=== PATIENT | female | born 1990 | race African-American/Black ===

== ENCOUNTER 2017-09-23 12:09 | Emergency (ER) | payer SELFPAY ==
[~2017-09-23] VITALS: Ht 162.6 cm; Wt 50.0 kg
[2017-09-23 12:32] VITALS: BP 151/106; PULSE 89; RESP 15; TEMP 98.2; O2SAT 99
[2017-09-23 16:07] LABS: BILIRUBIN, URINE NEG (NEG); BLOOD, URINE SMALL (NEG); GLUCOSE,URINE NEG (NEG); KETONE, URINE 40 mg/dL (NEG); NITRITE,URINE NEG (NEG); PH, URINE 6.5 (5.0-8.5); SQUAMOUS EPITHELIAL CELL URINE 4 /hpf (0-5); URINE COLOR LIGHT-YELLOW (YELLW/STRAW); URINE LEUKOCYTE ESTERASE SMALL (NEG)
[2017-09-23 16:15] LABS: AUTOMATED NEUTROPHIL # 5.3 TH/MM3 (1.8-7.7); BASOPHIL % 0.4 % (0.0-2.0); EOSINOPHIL # 0.1 TH/MM3 (0-0.4); EOSINOPHIL % 1.6 % (0.0-4.0); HEMATOCRIT 41.9 % (35.0-46.0); LYMPH % 32.7 % (9.0-44.0); LYMPHOCYTE # 3.1 TH/MM3 (1.0-4.8); MEAN CELL VOLUME 90.5 FL (80.0-100.0); MEAN CORPUSCULAR HEMOGLOBIN 30.2 PG (27.0-34.0); MEAN CORPUSCULAR HGB CONC 33.4 % (32.0-36.0); MEAN PLATELET VOLUME 10.7 FL (7.0-11.0); MONOCYTE # 0.8 TH/MM3 (0-0.9); NEUT % 56.3 % (16.0-70.0); PLATELET COUNT 190 TH/MM3 (150-450); RED BLOOD COUNT 4.63 MIL/MM3 (4.00-5.30); RED CELL DISTRIBUTION WIDTH 14.9 % (11.6-17.2); WHITE BLOOD COUNT 9.4 TH/MM3 (4.0-11.0)
--- NOTE | 2017-09-23 16:39 | PD ---
HPI Chief Complaint: Abdominal Pain Time Seen by Provider: 14:46 Travel History International Travel<30 days: No Contact w/Intl Traveler<30days: No Traveled to known affect area: No History of Present Illness HPI 27-year-old woman presents to the emergency department complaining of lower abdominal cramping, pain on the right side of her chest, rating the right side of her neck, throughout the right side of her body. She states she has some shortness of breath with this as well. She states the lower abdominal pain feels like she is cramping, like a bad menstrual period or like she is in labor. She is worried she may have an infection. She has been sexually active with men only, 3 partners in the past 6 months, but is heard rumors at 1 of the symptoms of STD. She states she otherwise has been feeling well and healthy. No other complaints. History Past Medical History Medical History: Denies Significant Hx Tetanus Vaccination: < 5 Years Menopausal: No : 5 Para: 5 Social History Alcohol Use: Yes (DAILY) Tobacco Use: Yes (1/2 PPD) Allergies-Medications (Allergen,Severity, Reaction): Coded Allergies: Unable to Assess (Unverified Allergy, Unknown, 02/10/17) Altered mental status No Known Allergies (Verified Adverse Reaction, Unknown, 09/23/17) Reported Meds & Prescriptions Reported Meds & Active Scripts Active No Active Prescriptions or Reported Medications Review of Systems Except as stated in HPI: all other systems reviewed are Neg Physical Exam Narrative GENERAL: Well-appearing 27-year-old woman, no acute distress. SKIN: Focused skin assessment warm/dry. HEAD: Atraumatic. Normocephalic. CARDIOVASCULAR: Regular rate and rhythm. No murmur appreciated. RESPIRATORY: No accessory muscle use. Clear to auscultation. Breath sounds equal bilaterally. GASTROINTESTINAL: Abdomen soft, non-tender, nondistended. Hepatic and splenic margins not palpable. MUSCULOSKELETAL: No obvious deformities. No clubbing. No cyanosis. No edema. NEUROLOGICAL: Awake and alert. No obvious cranial nerve deficits. Motor grossly within normal limits. Normal speech. PSYCHIATRIC: Appropriate mood and affect; insight and judgment normal. PELVIC: Normal external female genitalia. A moderate amount of white vaginal discharge. No significant cervical motion tenderness. Uterus is palpable but does not seem enlarged. No palpable adnexal enlargement or masses or tenderness. Data Data Last Documented VS Vital Signs Date Time Temp Pulse Resp B/P (MAP) Pulse Ox O2 Delivery O2 Flow Rate FiO2 09/23/17 12:32 98.2 89 15 151/106 (121) 99 Orders Orders Complete Blood Count With Diff (09/23/17 12:34) Comprehensive Metabolic Panel (09/23/17 12:34) Urinalysis - C+S If Indicated (09/23/17 12:34) Ed Urine Pregnancytest Poc (09/23/17 12:34) Lipase (09/23/17 12:34) Wet Prep Profile (09/23/17 15:02) Gc And Chlamydia Pcr (09/23/17 15:02) Labs Laboratory Tests Test 09/23/17 15:00 09/23/17 15:10 White Blood Count 9.4 TH/MM3 Red Blood Count 4.63 MIL/MM3 Hemoglobin 14.0 GM/DL Hematocrit 41.9 % Mean Corpuscular Volume 90.5 FL Mean Corpuscular Hemoglobin 30.2 PG Mean Corpuscular Hemoglobin Concent 33.4 % Red Cell Distribution Width 14.9 % Platelet Count 190 TH/MM3 Mean Platelet Volume 10.7 FL Neutrophils (%) (Auto) 56.3 % Lymphocytes (%) (Auto) 32.7 % Monocytes (%) (Auto) 9.0 % Eosinophils (%) (Auto) 1.6 % Basophils (%) (Auto) 0.4 % Neutrophils # (Auto) 5.3 TH/MM3 Lymphocytes # (Auto) 3.1 TH/MM3 Monocytes # (Auto) 0.8 TH/MM3 Eosinophils # (Auto) 0.1 TH/MM3 Basophils # (Auto) 0.0 TH/MM3 CBC Comment DIFF FINAL Differential Comment Clue Cells (Wet Prep) PRESENT Vaginal Trichomonas (Wet Prep) NONE SEEN Vaginal Yeast (Wet Prep) NONE SEEN Blood Urea Nitrogen 9 MG/DL Creatinine 0.89 MG/DL Random Glucose 85 MG/DL Total Protein 8.6 GM/DL Albumin 4.0 GM/DL Calcium Level 9.5 MG/DL Alkaline Phosphatase 86 U/L Aspartate Amino Transf (AST/SGOT) 40 U/L Alanine Aminotransferase (ALT/SGPT) 24 U/L Total Bilirubin 0.4 MG/DL Sodium Level 134 MEQ/L Potassium Level 5.3 MEQ/L Chloride Level 100 MEQ/L Carbon Dioxide Level 28.4 MEQ/L Anion Gap 6 MEQ/L Estimat Glomerular Filtration Rate 91 ML/MIN Lipase 132 U/L Urine Color LIGHT-YELLOW Urine Turbidity CLEAR Urine pH 6.5 Urine Specific [place] 1.008 Urine Protein NEG mg/dL Urine Glucose (UA) NEG mg/dL Urine Ketones 40 mg/dL Urine Occult Blood SMALL Urine Nitrite NEG Urine Bilirubin NEG Urine Urobilinogen LESS THAN 2.0 MG/DL Urine Leukocyte Esterase SMALL Urine RBC LESS THAN 1 /hpf Urine WBC 3 /hpf Urine Squamous Epithelial Cells 4 /hpf Microscopic Urinalysis Comment CULT NOT INDICATED MDM Medical Decision Making Medical Screen Exam Complete: Yes Emergency Medical Condition: Yes Interpretation(s) LABS: CBC is unremarkable CMP Lipase UA unremarkable Wet prep positive for clue cells Differential Diagnosis PID, vaginitis, cramping, muscular skeletal pain, other Narrative Course Medical decision making to present 27-year-old woman presents emerged department with plethora of unusual complaints including lower abdominal pain and cramping with vaginal discharge, as well as right-sided face neck chest valley arm pain of unclear etiology. She is a very normal benign exam. Pelvic exam is fairly unremarkable despite her concerns for STD. Gonorrhea and chlamydia swabs are obtained. Will check basic labs, initial workup is unremarkable, would recommend outpatient follow-up. I do not think she has a PE or other more sinister pathology for this right-sided pain. Diagnosis Primary Impression: Pelvic cramping Additional Instructions: Take Flagyl as prescribed. Take Naprosyn as needed for abdominal pain. Follow-up with her primary doctor in the next 2-4 days. Return to the emergency department for any new or worsening symptoms. Med/Other Pt SpecificInfo: Prescription(s) given Scripts Naproxen (Naproxen) 500 Mg Tab 500 MG PO BID for 14 Days, #28 TAB 0 Refills Prov: Musa Hubbard MD 09/23/17 Metronidazole (Metronidazole) 500 Mg Tab 500 MG PO BID for Infection for 7 Days, #14 TAB 0 Refills Prov: Musa Hubbard MD 09/23/17 Disposition: 01 DISCHARGE HOME Condition: Stable Musa Hubbard MD Sep 23, 2017 16:39
[2017-09-23 16:43] LABS: ALKALINE PHOSPHATASE 86 U/L (45-117); ALT (GPT) 24 U/L (10-53); TOTAL BILIRUBIN ADULT 0.4 MG/DL (0.2-1.0); TOTAL PROTEIN 8.6 GM/DL (6.4-8.2)
[2017-09-23 17:04] LABS: AST (GOT) 40 U/L (15-37); BICARBONATE 28.4 MEQ/L (21.0-32.0); BLOOD UREA NITROGEN 9 MG/DL (7-18); CALCIUM 9.5 MG/DL (8.5-10.1); CHLORIDE 100 MEQ/L (98-107); CREATININE 0.89 MG/DL (0.50-1.00); GLOMERULAR FILTRATION RATE 91 ML/MIN (>89); GLUCOSE,RANDOM 85 MG/DL (74-106); SODIUM (NA) 134 MEQ/L (136-145)
[2017-09-23] MEDS ORDERED: METR1TAB76 PO (17:35)
[2017-09-23] MEDS ORDERED: NAPR500T2 PO (17:35)
[2017-09-23] MEDS ORDERED: NAPROXEN 500 MG TAB PO ONE (17:45)
[2017-09-23 17:57] VITALS: BP 118/67
== END 2017-09-23 18:07 | disposition home or self-care (01) ==
LOC: NEPD 12:09
DX: R10.2 Pelvic and perineal pain (principal); F17.200 Nicotine dependence, unspecified, uncomplicated; R06.02 Shortness of breath
CPT/HCPCS: 80053; 81001; 83690; 84703; 85025; 87210; 87491; 87591; 99284

== ENCOUNTER 2017-11-05 01:05 | Emergency (ER) | payer SELFPAY ==
[~2017-11-05] VITALS: Ht 162.6 cm; Wt 50.0 kg
[~2017-11-05 01:05] MED LIST: METR1TAB76 PO; NAPR500T2 PO
[2017-11-05 01:11] VITALS: BP 122/75; PULSE 104; RESP 18; TEMP 98.9; O2SAT 100
[2017-11-05] MEDS ORDERED: SODIUM CHLOR 0.9% 1000 ML INJ 1,000 ML IV SCH (01:36)
[2017-11-05] MEDS ORDERED: SODIUM CHLORIDE 0.9% FLUSH 10 ML FLUSH IV FLUSH PRN (01:45)
[2017-11-05] MEDS ORDERED: ONDANSETRON HCL 4 MG/2 ML VIAL IVP ONE (01:45)
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
[2017-11-05 02:12] LABS: AUTOMATED NEUTROPHIL # 4.5 TH/MM3 (1.8-7.7); BASOPHIL % 0.5 % (0.0-2.0); EOSINOPHIL # 0.2 TH/MM3 (0-0.4); EOSINOPHIL % 2.5 % (0.0-4.0); HEMATOCRIT 40.1 % (35.0-46.0); HEMOGLOBIN 13.8 GM/DL (11.6-15.3); LYMPH % 37.7 % (9.0-44.0); LYMPHOCYTE # 3.4 TH/MM3 (1.0-4.8); MEAN CELL VOLUME 87.9 FL (80.0-100.0); MEAN CORPUSCULAR HEMOGLOBIN 30.2 PG (27.0-34.0); MEAN CORPUSCULAR HGB CONC 34.4 % (32.0-36.0); MEAN PLATELET VOLUME 10.2 FL (7.0-11.0); MONO % 9.7 % (0.0-8.0); MONOCYTE # 0.9 TH/MM3 (0-0.9); NEUT % 49.6 % (16.0-70.0); PLATELET COUNT 185 TH/MM3 (150-450); RED BLOOD COUNT 4.56 MIL/MM3 (4.00-5.30); RED CELL DISTRIBUTION WIDTH 14.6 % (11.6-17.2)
[2017-11-05 02:30] LABS: CALCIUM 8.8 MG/DL (8.5-10.1); CREATININE 1.01 MG/DL (0.50-1.00)
--- NOTE | 2017-11-05 20:54 | EKG ---
Date Performed: 11/05/2017 Time Performed: 01:23:42 PTAGE: 27 years EKG: Sinus rhythm High QRS voltage, probably normal for age. Since previous tracing, no significant change noted ABNOR MAL ECG PREVIOUS TRACING : 02/12/2009 13.37 DOCTOR: Harjinder Archer Interpretating Date/Time 11/05/2017 20:54:47
== END 2017-11-05 03:42 | disposition home or self-care (01) ==
LOC: NEPC 01:05
DX: F19.10 Other psychoactive substance abuse, uncomplicated (principal); R11.2 Nausea with vomiting, unspecified; F17.200 Nicotine dependence, unspecified, uncomplicated; R94.31 Abnormal electrocardiogram [ECG] [EKG]
CPT/HCPCS: 80048; 83690; 85025; 93005; 96360; 99284; J7030

== ENCOUNTER 2017-11-19 14:50 | Emergency (ER) | payer SELFPAY ==
[~2017-11-19] VITALS: Ht 162.6 cm; Wt 52.0 kg
[2017-11-19 14:56] VITALS: BP 139/85; PULSE 91; RESP 16; TEMP 97.3; O2SAT 100
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
[2017-11-19] MEDS ORDERED: SODIUM CHLORIDE 0.9% FLUSH 10 ML FLUSH IV FLUSH PRN (15:45)
[2017-11-19 16:11] LABS: AUTOMATED NEUTROPHIL # 7.4 TH/MM3 (1.8-7.7); BASOPHIL % 0.2 % (0.0-2.0); EOSINOPHIL # 0.1 TH/MM3 (0-0.4); EOSINOPHIL % 0.5 % (0.0-4.0); HEMATOCRIT 39.9 % (35.0-46.0); HEMOGLOBIN 13.4 GM/DL (11.6-15.3); LYMPH % 20.7 % (9.0-44.0); LYMPHOCYTE # 2.1 TH/MM3 (1.0-4.8); MEAN CORPUSCULAR HEMOGLOBIN 29.8 PG (27.0-34.0); MEAN CORPUSCULAR HGB CONC 33.6 % (32.0-36.0); MEAN PLATELET VOLUME 9.9 FL (7.0-11.0); MONOCYTE # 0.7 TH/MM3 (0-0.9); NEUT % 71.6 % (16.0-70.0); PLATELET COUNT 175 TH/MM3 (150-450); RED BLOOD COUNT 4.49 MIL/MM3 (4.00-5.30); RED CELL DISTRIBUTION WIDTH 14.8 % (11.6-17.2); WHITE BLOOD COUNT 10.3 TH/MM3 (4.0-11.0)
[2017-11-19 16:16] LABS: PROTHROMBIN TIME - PATIENT 10.3 SEC (9.8-11.6)
[2017-11-19 16:18] LABS: BACTERIA, URINE RARE /hpf; BILIRUBIN, URINE NEG (NEG); BLOOD, URINE NEG (NEG); GLUCOSE,URINE NEG (NEG); KETONE, URINE NEG (NEG); MUCUS URINE FEW /lpf (OCC); NITRITE,URINE NEG (NEG); SQUAMOUS EPITHELIAL CELL URINE 1 /hpf (0-5); URINE COLOR YELLOW (YELLW/STRAW); URINE LEUKOCYTE ESTERASE MOD (NEG)
[2017-11-19 16:25] LABS: ALBUMIN 4.1 GM/DL (3.4-5.0); ALT (GPT) 22 U/L (10-53); AST (GOT) 20 U/L (15-37); BICARBONATE 25.9 MEQ/L (21.0-32.0); BLOOD UREA NITROGEN 3 MG/DL (7-18); CHLORIDE 101 MEQ/L (98-107); CREATININE 0.82 MG/DL (0.50-1.00); GLOMERULAR FILTRATION RATE 100 ML/MIN (>89); GLUCOSE,RANDOM 107 MG/DL (74-106); SODIUM (NA) 138 MEQ/L (136-145)
[2017-11-19 16:29] LABS: ALKALINE PHOSPHATASE 63 U/L (45-117); TOTAL BILIRUBIN ADULT 0.2 MG/DL (0.2-1.0); TOTAL PROTEIN 7.6 GM/DL (6.4-8.2)
--- NOTE | 2017-11-19 17:50 | RADRPT ---
EXAM DATE: 11/19/2017 5:44 PM EDT AGE/SEX: 27 years / Female INDICATIONS: Patient states possible foreign body in rectum. CLINICAL DATA: This is the patient's initial encounter. Patient reports that signs and symptoms have been present for 1 day and indicates a pain score of 0/10. MEDICAL/SURGICAL HISTORY: None. Tubal ligation. RADIATION DOSE: 6.64 CTDI (mGy) COMPARISON: No prior [facility] exams available for comparison. TECHNIQUE: Multiple contiguous axial images were obtained through the abdomen. Images were obtained using multiple row detector helical technique. Using dose reduction techniques, radiation dose was ke pt as low as reasonably achievable to obtain optimal diagnostic quality images. FINDINGS: Lung bases are clear. No acute findings in the liver, spleen, adrenals, kidneys or pancreas. No free fluid in the abdomen. There is a small amount of free fluid in the pelvis.. No bowel obstruct ion. No adenopathy. There is a 2.6 cm right adnexal cyst, probably ovarian. No radiopaque foreign body is seen in the rec randall. Stool is noted. CONCLUSION: 1. 2.6 cm right adnexal cyst. Trace free fluid in the pelvis. No radiopaque foreign body identified within the rectum. No acute bony abnormalities. Electronically signed by: Mark Hernandez MD 11/19/2017 5:48 PM EDT
[2017-11-19 21:30] VITALS: BP 124/66; PULSE 88; RESP 16; O2SAT 98
--- NOTE | 2017-11-20 17:58 | EKG ---
Date Performed: 11/19/2017 Time Performed: 15:45:32 PTAGE: 27 years EKG: Sinus rhythm NORMAL ECG Since the PREVIOUS TRACING , no significant change noted PREVIOUS TRACIN11/05/2017 01.23 DOCTOR: Hilda Cochran Interpretating Date/Time 11/20/2017 17:57:20
== END 2017-11-20 01:02 | disposition home or self-care (01) ==
LOC: NEPD 14:50
DX: N83.201 Unspecified ovarian cyst, right side (principal); F17.200 Nicotine dependence, unspecified, uncomplicated
CPT/HCPCS: 74176; 80053; 81001; 84702; 85025; 85610; 85730; 93005; 99285

== ENCOUNTER 2017-11-20 11:29 | Emergency (ER) | payer SELFPAY ==
[~2017-11-20] VITALS: Ht 162.6 cm; Wt 52.0 kg
[2017-11-20 11:57] VITALS: BP 133/91; PULSE 62; RESP 17; TEMP 98.6; O2SAT 99
[2017-11-20 12:47] LABS: AUTOMATED NEUTROPHIL # 7.4 TH/MM3 (1.8-7.7); BASOPHIL % 0.4 % (0.0-2.0); EOSINOPHIL # 0.1 TH/MM3 (0-0.4); EOSINOPHIL % 1.1 % (0.0-4.0); HEMATOCRIT 41.1 % (35.0-46.0); HEMOGLOBIN 13.5 GM/DL (11.6-15.3); LYMPH % 19.5 % (9.0-44.0); MEAN CELL VOLUME 89.3 FL (80.0-100.0); MEAN CORPUSCULAR HEMOGLOBIN 29.4 PG (27.0-34.0); MEAN PLATELET VOLUME 10.2 FL (7.0-11.0); MONO % 7.6 % (0.0-8.0); MONOCYTE # 0.8 TH/MM3 (0-0.9); NEUT % 71.4 % (16.0-70.0); PLATELET COUNT 188 TH/MM3 (150-450); RED CELL DISTRIBUTION WIDTH 15.1 % (11.6-17.2); WHITE BLOOD COUNT 10.3 TH/MM3 (4.0-11.0)
[2017-11-20 13:04] LABS: ALT (GPT) 21 U/L (10-53); BICARBONATE 27.5 MEQ/L (21.0-32.0); BLOOD UREA NITROGEN 3 MG/DL (7-18); CALCIUM 9.5 MG/DL (8.5-10.1); CHLORIDE 103 MEQ/L (98-107); CREATININE 0.79 MG/DL (0.50-1.00); GLOMERULAR FILTRATION RATE 104 ML/MIN (>89); GLUCOSE,RANDOM 101 MG/DL (74-106); SODIUM (NA) 140 MEQ/L (136-145)
[2017-11-20 13:15] LABS: ALKALINE PHOSPHATASE 65 U/L (45-117); AST (GOT) 15 U/L (15-37); TOTAL BILIRUBIN ADULT 0.2 MG/DL (0.2-1.0); TOTAL PROTEIN 7.8 GM/DL (6.4-8.2)
== END 2017-11-20 15:40 | disposition left against medical advice (07) ==
LOC: NETRI 11:29
DX: Z03.89 Encounter for observation for other suspected diseases and conditions ruled out (principal)
CPT/HCPCS: 80053; 85025; 99281

== ENCOUNTER 2018-02-27 17:47 | Inpatient (IN) ==
[2018-02-27 18:42] LABS: Baso # (Auto) 0.1 th/mm3 (0.0-0.2); Baso % (Auto) 0.5 % (0.0-2.0); Eos # (Auto) 0.1 th/mm3 (0.0-0.4); Eos % (Auto) 0.6 % (0.0-4.0); Hematocrit 40.5 % (35.0-46.0); Hemoglobin 13.8 gm/dL (11.6-15.3); Lymph % (Auto) 24.8 % (9.0-44.0); Mean Corpuscular HGB Conc 34.1 % (32.0-36.0); Mean Corpuscular Volume 87.8 fL (80.0-100.0); Mean Platelet Volume 10.4 fL (7.0-11.0); Mono # (Auto) 1.4 th/mm3 (0.0-0.9); Mono % (Auto) 11.9 % (0.0-8.0); Neut # (Auto) 7.5 th/mm3 (1.8-7.7); Neut % (Auto) 62.2 % (16.0-70.0); Platelet Count 195 th/mm3 (150-450); Red Blood Count 4.61 mil/mm3 (4.00-5.30); Red Cell Distribution Width 16.1 % (11.6-17.2); White Blood Count 12.1 th/mm3 (4.0-11.0)
[2018-02-27 19:07] LABS: Alanine Aminotransferase 23 U/L (10-53); Albumin 4.1 g/dL (3.4-5.0); Anion Gap 12 meq/L (5-15); Aspartate Aminotransferase 24 U/L (15-37); Blood Urea Nitrogen 11 mg/dL (7-18); Calcium 9.1 mg/dL (8.5-10.1); Carbon Dioxide 23.3 meq/L (21.0-32.0); Chloride 102 meq/L (98-107); Glomerular Filtration Rate 72 mL/min (>89); Glucose,Random 108 mg/dL (74-106); Potassium 3.6 meq/L (3.5-5.1); Sodium 137 meq/L (136-145)
[2018-02-27 19:17] LABS: Alkaline Phosphatase 68 U/L (45-117)
[2018-02-27 19:38] LABS: Amphetamine Screen,Urine Pos (Neg); Barbiturate Screen,Urine Neg (Neg); Cannabinoid Screen,Urine Pos (Neg); Cocaine Screen,Urine Neg (Neg)
[2018-02-27 19:40] LABS: Opiate Screen,Urine Neg (Neg)
--- NOTE | 2018-02-27 19:48 | ED ---
HPI General Chief Complaint: Psychiatric Symptoms Stated Complaint: psych eval Time Seen by Provider: 02/27/18 19:12 Source: patient and police Mode of arrival: ambulatory Limitations: no limitations History of Present Illness HPI Narrative: 27-year-old black female presents emergency department under a [place] act by PD. Family members had called regarding the patient's well-being. The patient appear to be acutely psychotic and unable to render meaningful history. She continues to state that she is . Past medical history: TBI with subdural hematoma Related Data Home Medications Medication Instructions Recorded Confirmed Unable to Obtain Home Meds 02/27/18 02/27/18 Allergies Allergy/AdvReac Type Severity Reaction Status Date / Time No Known Allergies Allergy Unverified 02/27/18 18:02 Review of Systems ROS Unobtainable ROS Unobtainable: unobtainable due to mental condition PMFSH Medical History Medical History Medical history unknown (Acute) Surgical history unknown (Acute) Social History Social History Substance History: Unable to Obtain Second Hand Smoke Exposure: No Smoking Status: Heavy tobacco smoker Tobacco Type: Cigarettes How Often Do You Have a Drink Containing Alcohol: 4 or more times a week Recent Travel in [place] within the Last 8 Weeks: No Recent Out of Country Travel within the Last 8 Weeks: No Immunization History Tetanus Immunization: Unable to Assess Hx Influenza Vaccine This Season: Unable to Assess Exam Narrative Exam Narrative: GENERAL: Well-nourished, well-developed patient. SKIN: Warm and dry. HEAD: Normocephalic and atraumatic. EYES: No scleral icterus. No injection or drainage. ENT: No nasal drainage noted. Mucous membranes pink. Airway patent. NECK: Supple, trachea midline. Moves head freely without obvious discomfort. CARDIOVASCULAR: Regular rate and rhythm without murmurs, gallops, or rubs. RESPIRATORY: Breath sounds equal bilaterally. No accessory muscle use. GASTROINTESTINAL: Abdomen soft, non-tender, nondistended. EXTREMITIES: No cyanosis or edema. BACK: Nontender without obvious deformity. No CVA tenderness. NEURO: Patient is alert and oriented. no sensorimotor deficits. Nonfocal. Normal speech. PSYCH: The patient is acutely psychotic and delusional. Course Initial Documented Vital Signs Temperature 99.5 F 02/27/18 18:03 Pulse Rate 128 H 02/27/18 18:03 Respiratory Rate 18 02/27/18 18:03 Blood Pressure 152/83 H 02/27/18 18:03 Pulse Oximetry 100 02/27/18 18:03 Last Documented Vital Signs Temperature 98.0 F 02/28/18 06:00 Pulse Rate 78 02/28/18 06:00 Respiratory Rate 17 02/28/18 06:00 Blood Pressure 109/68 02/28/18 06:00 Pulse Oximetry 98 02/28/18 06:00 Medical Decision Making MDM Narrative Medical decision making narrative: Laboratory tests for medical clearance. Patient is given Geodon 20 mg IM and Ativan 2 mg IM. The patient is very agitated, psychotic. The patient is medically cleared. Medical Screen Exam Complete: Yes Emergency Medical Condition: Yes Differential Diagnosis Differential Diagnosis: MDM: High Differential diagnoses: Schizophrenia, schizoaffective disorder, bipolar, anxiety, depression, adjustment reaction, mood disorder NOS, ODD, depressive disorder NOS, dementia, dementia with agitation, psychosis NOS, substance induced mood disorder, DMDD, Asperger syndrome, infection,electrolyte abnormality, malingering. Mental health screening discussed with the patient. Psychiatric screen ordered. Lab Data Result diagrams: 02/27/18 18:19 02/27/18 18:19 POC Results POC Urine Results Negative Lab Results 02/27/18 02/27/18 02/27/18 Range/Units 18:19 18:19 19:05 WBC 12.1 H (4.0-11.0) th/mm3 RBC 4.61 (4.00-5.30) mil/mm3 Hgb 13.8 (11.6-15.3) gm/dL Hct 40.5 (35.0-46.0) % MCV 87.8 (80.0-100.0) fL MCH 30.0 (27.0-34.0) pg MCHC 34.1 (32.0-36.0) % RDW 16.1 (11.6-17.2) % Plt Count 195 (150-450) th/mm3 MPV 10.4 (7.0-11.0) fL Neut % (Auto) 62.2 (16.0-70.0) % Lymph % (Auto) 24.8 (9.0-44.0) % Towns % (Auto) 11.9 H (0.0-8.0) % Eos % (Auto) 0.6 (0.0-4.0) % Baso % (Auto) 0.5 (0.0-2.0) % Neut # (Auto) 7.5 (1.8-7.7) th/mm3 Lymph # (Auto) 3.0 (1.0-4.8) th/mm3 Towns # (Auto) 1.4 H (0.0-0.9) th/mm3 Eos # (Auto) 0.1 (0.0-0.4) th/mm3 Baso # (Auto) 0.1 (0.0-0.2) th/mm3 WBC Differential . Differential Comment Auto diff final Sodium 137 (136-145) meq/L Potassium 3.6 (3.5-5.1) meq/L Chloride 102 (98-107) meq/L Carbon Dioxide 23.3 (21.0-32.0) meq/L Anion Gap 12 (5-15) meq/L BUN 11 (7-18) mg/dL Creatinine 1.09 H (0.50-1.00) mg/dL Estimated GFR 72 L (>89) mL/min Random Glucose 108 H (74-106) mg/dL Calcium 9.1 (8.5-10.1) mg/dL Total Bilirubin 0.5 (0.2-1.0) mg/dL AST 24 (15-37) U/L ALT 23 (10-53) U/L Alkaline Phosphatase 68 (45-117) U/L Total Protein 8.0 (6.4-8.2) g/dL Albumin 4.1 (3.4-5.0) g/dL TSH 1.030 (0.358-3.740) uIU/mL Urine Color (Yellw/Straw) Urine Clarity (Clear) Urine pH (5.0-8.5) Ur Specific [place] (1.002-1.035) Urine Protein (Neg-Trace) mg/dL Urine Glucose (UA) (Negative) mg/dL Urine Ketones (Negative) mg/dL Urine Occult Blood (Negative) Urine Nitrate (Negative) Urine Bilirubin (Negative) Urine Urobilinogen (Less than 2) mg/dL Ur Leukocyte Esterase (Negative) Urine RBC (0-3) /hpf Urine WBC (0-5) /hpf Ur Squamous Epith Cells (0-5) /hpf Ur Transition Epith Cell (None) /hpf Urine Bacteria (None) /hpf Hyaline Casts (0-3) /lpf Granular Casts (None) /lpf Urine Mucus (Occasional) /lpf Micro UA Comment Ur Microscopic Review Urine Culture Comments Urine Opiates Screen Neg (Neg) Ur Barbiturates Screen Neg (Neg) Ur Amphetamines Screen Pos H (Neg) U Benzodiazepines Scrn Neg (Neg) Urine Cocaine Screen Neg (Neg) U Cannabinoids Screen Pos H (Neg) Serum Alcohol Less than 3 (0-5) mg/dL 02/27/18 Range/Units 19:05 WBC (4.0-11.0) th/mm3 RBC (4.00-5.30) mil/mm3 Hgb (11.6-15.3) gm/dL Hct (35.0-46.0) % MCV (80.0-100.0) fL MCH (27.0-34.0) pg MCHC (32.0-36.0) % RDW (11.6-17.2) % Plt Count (150-450) th/mm3 MPV (7.0-11.0) fL Neut % (Auto) (16.0-70.0) % Lymph % (Auto) (9.0-44.0) % Towns % (Auto) (0.0-8.0) % Eos % (Auto) (0.0-4.0) % Baso % (Auto) (0.0-2.0) % Neut # (Auto) (1.8-7.7) th/mm3 Lymph # (Auto) (1.0-4.8) th/mm3 Towns # (Auto) (0.0-0.9) th/mm3 Eos # (Auto) (0.0-0.4) th/mm3 Baso # (Auto) (0.0-0.2) th/mm3 WBC Differential Differential Comment Sodium (136-145) meq/L Potassium (3.5-5.1) meq/L Chloride (98-107) meq/L Carbon Dioxide (21.0-32.0) meq/L Anion Gap (5-15) meq/L BUN (7-18) mg/dL Creatinine (0.50-1.00) mg/dL Estimated GFR (>89) mL/min Random Glucose (74-106) mg/dL Calcium (8.5-10.1) mg/dL Total Bilirubin (0.2-1.0) mg/dL AST (15-37) U/L ALT (10-53) U/L Alkaline Phosphatase (45-117) U/L Total Protein (6.4-8.2) g/dL Albumin (3.4-5.0) g/dL TSH (0.358-3.740) uIU/mL Urine Color Yellow (Yellw/Straw) Urine Clarity Hazy H (Clear) Urine pH 6.0 (5.0-8.5) Ur Specific [place] 1.012 (1.002-1.035) Urine Protein 30 H (Neg-Trace) mg/dL Urine Glucose (UA) Negative (Negative) mg/dL Urine Ketones 20 (Negative) mg/dL Urine Occult Blood Moderate H (Negative) Urine Nitrate Negative (Negative) Urine Bilirubin Negative (Negative) Urine Urobilinogen 2.0 H (Less than 2) mg/dL Ur Leukocyte Esterase Moderate H (Negative) Urine RBC 1 (0-3) /hpf Urine WBC 23 H (0-5) /hpf Ur Squamous Epith Cells 1 (0-5) /hpf Ur Transition Epith Cell <1 (None) /hpf Urine Bacteria Rare H (None) /hpf Hyaline Casts 12 (0-3) /lpf Granular Casts 10 (None) /lpf Urine Mucus Few H (Occasional) /lpf Micro UA Comment Culture indicated Ur Microscopic Review Not Reportable Urine Culture Comments Culture indicated Urine Opiates Screen (Neg) Ur Barbiturates Screen (Neg) Ur Amphetamines Screen (Neg) U Benzodiazepines Scrn (Neg) Urine Cocaine Screen (Neg) U Cannabinoids Screen (Neg) Serum Alcohol (0-5) mg/dL Discharge Plan Discharge Disposition Patient Disposition: 01 Discharge Home Discharge Condition Condition: Stable Discharge Order Discharge Orders: Discharge Order (Routine); Ordered 02/28/18 Ordered By: Mark Farias Discharge Details Anticipated Discharge Date: 02/28/18 Physicians Team ED Provider: [facility] ED Midlevel Provider: Mark Farias Primary Care Provider: Primary Care Mj,Desire Attending Provider: Wilfred Owesn Other Providers: Lucinao Macdonald Discharge Interventions Interventions: ED Discharge Assessment Last Done: 02/27/18 23:44 Vital Signs Last Done: 02/27/18 22:49 Status ED Status: Left Department Discharge Information Discharge Date/Time: 02/27/18 23:47
[2018-02-27 22:57] LABS: Bacteria,Urine Rare /hpf; Bilirubin,Urine Negative (Negative); Clarity,Urine Hazy (Clear); Color,Urine Yellow (Yellw/Straw); Glucose,Urine (UA) Negative (Negative); Hyaline Casts,Urine 12 /lpf (0-3); Leukocyte Esterase,Urine Moderate (Negative); Mucus,Urine Few /lpf (Occasional); Nitrite,Urine Negative (Negative); Specific Gravity,Urine 1.012 (1.002-1.035); Squamous Epithelial Cell,Urine 1 /hpf (0-5); Transitional Epi Cells,Urine <1 /hpf
[2018-02-28] MEDS ORDERED: Acetaminophen 325 MG Tablet PO PRN (00:45)
[2018-02-28] MEDS ORDERED: LORazepam 1 MG Tablet PO PRN (00:45)
[2018-02-28] MEDS ORDERED: Aluminum/Magnesium/Simethacone Susp 30 ML UDC PO PRN ×2 (00:45→11:39)
--- NOTE | 2018-02-28 11:56 | P.HPPSY ---
Provisional Diagnosis Admission Date: February 27, 2018 22:44 [place] I.: Psychotic disorder brief, amphetamine abuse, marijuana abuse Competence Certification of Person's Competence To Provide Express and Informed Consent I have personally examined Thao Raphael, a person being served at [facility] on, February 28, 2018 1144. Express and informed consent means consent voluntarily given in writing, by a competent person, after sufficient explanation and disclosure of the subject matter involved to enable the person to make a knowing and willful decision without any element of force, fraud, deceit, duress, or other form of constraint or coercion. This person is 18 years of age or older, is not now known to be incompetent to consent to treatment with a guardian advocate, and does not have a health care surrogate or proxy currently making medical treatment decisions. I have found this person to be one of the following: [] Competent to provide express and informed consent, as defined above, for voluntary admission to this facility and is competent to provide express and informed consent for treatment. He/she has the consistent capacity to make well reasoned, willful, and knowing decisions concerning his or her medical or mental health treatment. The person fully and consistently understands the purpose of the admission for examination/placement and is fully capable of personally exercising all rights assured under [place] [] Incompetent to provide express and informed consent to voluntary admission, and this is incompetent to provide express and informed consent to treatment. The person must be transferred to involuntary status and a petition for a guardian advocate filed with the Circuit Court. [xxxx] Refusing to provide express and informed consent to voluntary admission but is competent to provide express and informed consent for treatment. The person must be discharged or transferred to involuntary status. Form shall be completed within 24 hours of a person's arrival at the receiving facility and filed in the clinical record of each person: 1. Admitted on a voluntary basis 2. Permitted to provide express and informed consent to his/her own treatment 3. Allowed to transfer from involuntary to voluntary status 4. Prior to permitting a person to consent to his or her own treatment after having been previously found incompetent to consent to treatment. History of Present Illness Capacity: Lacks capacity (Patient lacks capacity to sign for hospitalization does have capacity to sign for medication) History of Present Illness: Patient is a 27-year-old Afro-Cuban female who comes here under Stephens act by the [place] [employer] dated 02/27/2018 oh 6:55 PM that document reviewed essentially stated John received a call from Donavon brother that he was worried about her well-being and wanted Donavon evaluated for Stephens act upon making contact with Donavon Lopez observed Donavon having a conversation with somebody who was not there Donavon was unable to tell us where exactly she was with the of the week it is what year it is over the current [place] President 's Donavon made statements about having just woken up from being put to sleep and somebody trying to have her tubes tied Nixon stated she was just going to director labor standards place and way for a that the hospital supposedly called for. Patient seen screen in the ED urine toxicology positive for amphetamines and marijuana. At the present time patient laying quietly in her bed on 2700 nurse Jadyn and counselor Marisa present throughout session. Patient is alert fairly well oriented thin and slender somewhat disheveled -Cuban female somewhat angry irritable labile. She tells us that she has a baby in her for the past 6 years along with a monitor was placed inside her she stated she broke her bag of sánchez a few weeks ago that is leaking and somewhat foul- smelling. Patient seen in the ED in October of this year with her one child. Though she complained of having a foreign body in the rectum. It appears the police were called and his same examination was done. The results are not known. In any event at the present time patient does meet criteria for further inpatient psychiatric hospitalization under the Stephens act patient gives no significant history of past psychiatric hospitalizations I feel this is a denial on her part. She is quite psychotic and delusional. She also minimizes her substance abuse history. She states she has 5 children all with the various fathers. She states she has a fairly good relationship with her mother. I will do first opinion request second opinion. We will offer her Resporal M tab 1 mg twice daily. - Inpatient Certification I certify that the inpatient services were ordered in accordance with Medicare regulations governing the order. This includes certification that hospital inpatient services are reasonable and necessary and in the case of services not specified as inpatient-only under 42 CFR 419.22(n), that they are appropriately provided as inpatient services in accordance to with the 2-midnight benchmark under 43 CFR 412.3(e) I certify that inpatient psychiatric hospital services are medically necessary. Evaluation and treatment and/or diagnostic testing are expected to improve the patient's condition. The patient needs on a daily basis, active treatment furnished directly by or requiring the supervision of inpatient psychiatric facility personnel. Estimated Total Length of Stay (Days): 5 Plans for Post Hospital Care: Not yet determined Review of Systems Patient complains of having a six-year inside her along with the monitor PMFSH - History History Provided By: Patient, Medical Record - Medical History Medical History: Medical History (Last Reviewed 02/27/18 @ 19:47 by LUMA Cadena) Medical history unknown Surgical history unknown - Tobacco History Second Hand Smoke Exposure: No Tobacco Use In Past 30 Days: Yes Smoking Status: Heavy tobacco smoker Tobacco Type: Cigarettes - Alcohol History How Often Do You Have a Drink Containing Alcohol: 4 or more times a week - Substance Use History Substance History: Unable to Obtain - Substance Use Type Methamphetamine Status: Active Route Used: Inhalation Reason for Use: Calm Down, Get High - Travel History Recent Travel in the [place] Within the Last 8 Weeks: No Recent Travel Out of the Country Within the Last 8 Weeks: No - Immunization History Tetanus Immunization: >5 Years Hx Influenza Vaccine This Season: Yes Quality Measures - Psychiatric History Psychological trauma history: Patient quite psychotic complains of very traumatic episodes in the past Violence risk to others in the last 6 months: Low Violence risk to self in the last 6 months: Difficult to ascertain but appears low to moderate - Substance Abuse History Drug or alcohol use in the past 12 months: Patient history of amphetamine and marijuana use - Patient Strengths Patient's strengths (minimum of 2): Patient verbal able access healthcare Medications and Allergies Active Medications: Active Medications Acetaminophen (Tylenol) 650 mg PO Q4H PRN PRN Reason: Pain 1-5 or Temp >101F Al Hydrox/Mg Hydrox/Simethicone (Mag-Al Plus Susp Liq) 30 ml PO Q6H PRN PRN Reason: DYSPEPSIA Al Hydrox/Mg Hydrox/Simethicone (Mag-Al Plus Susp Liq) 30 ml PO Q6H PRN PRN Reason: DYSPEPSIA Al Hydroxide/Mg Hydroxide (Milk Of Magnesia Liq) 30 ml PO Q12H PRN PRN Reason: Mild Constipation Al Hydroxide/Mg Hydroxide (Milk Of Magnesia Liq) 30 ml PO Q12H PRN PRN Reason: Mild Constipation Diphenhydramine HCl (Benadryl) 50 mg PO HS PRN PRN Reason: INSOMNIA Hydroxyzine HCl (Atarax) 50 mg PO Q6H PRN PRN Reason: ANXIETY Allergies Allergy/AdvReac Type Severity Reaction Status Date / Time No Known Allergies Allergy Unverified 02/27/18 18:02 Home Medications Medication Instructions Recorded Confirmed Type Unable to Obtain Home Meds 02/27/18 02/27/18 History Results - Labs CBC & Chem 7: 02/27/18 18:19 02/27/18 18:19 Labs: Laboratory Results - last 24 hr 02/27/18 02/27/18 02/27/18 18:19 18:19 19:05 WBC 12.1 H RBC 4.61 Hgb 13.8 Hct 40.5 MCV 87.8 MCH 30.0 MCHC 34.1 RDW 16.1 Plt Count 195 MPV 10.4 Neut % (Auto) 62.2 Lymph % (Auto) 24.8 [place] % (Auto) 11.9 H Eos % (Auto) 0.6 Baso % (Auto) 0.5 Neut # (Auto) 7.5 Lymph # (Auto) 3.0 [place] # (Auto) 1.4 H Eos # (Auto) 0.1 Baso # (Auto) 0.1 WBC Differential . Differential Comment Auto diff final Sodium 137 Potassium 3.6 Chloride 102 Carbon Dioxide 23.3 Anion Gap 12 BUN 11 Creatinine 1.09 H Estimated GFR 72 L Random Glucose 108 H Calcium 9.1 Total Bilirubin 0.5 AST 24 ALT 23 Alkaline Phosphatase 68 Total Protein 8.0 Albumin 4.1 TSH 1.030 Urine Color Urine Clarity Urine pH Ur Specific [place] Urine Protein Urine Glucose (UA) Urine Ketones Urine Occult Blood Urine Nitrate Urine Bilirubin Urine Urobilinogen Ur Leukocyte Esterase Urine RBC Urine WBC Ur Squamous Epith Cells Ur Transition Epith Cell Urine Bacteria Hyaline Casts Granular Casts Urine Mucus Micro UA Comment Ur Microscopic Review Urine Culture Comments Urine Opiates Screen Neg Ur Barbiturates Screen Neg Ur Amphetamines Screen Pos H U Benzodiazepines Scrn Neg Urine Cocaine Screen Neg U Cannabinoids Screen Pos H Serum Alcohol Less than 3 02/27/18 19:05 WBC RBC Hgb Hct MCV MCH MCHC RDW Plt Count MPV Neut % (Auto) Lymph % (Auto) [place] % (Auto) Eos % (Auto) Baso % (Auto) Neut # (Auto) Lymph # (Auto) [place] # (Auto) Eos # (Auto) Baso # (Auto) WBC Differential Differential Comment Sodium Potassium Chloride Carbon Dioxide Anion Gap BUN Creatinine Estimated GFR Random Glucose Calcium Total Bilirubin AST ALT Alkaline Phosphatase Total Protein Albumin TSH Urine Color Yellow Urine Clarity Hazy H Urine pH 6.0 Ur Specific [place] 1.012 Urine Protein 30 H Urine Glucose (UA) Negative Urine Ketones 20 Urine Occult Blood Moderate H Urine Nitrate Negative Urine Bilirubin Negative Urine Urobilinogen 2.0 H Ur Leukocyte Esterase Moderate H Urine RBC 1 Urine WBC 23 H Ur Squamous Epith Cells 1 Ur Transition Epith Cell <1 Urine Bacteria Rare H Hyaline Casts 12 Granular Casts 10 Urine Mucus Few H Micro UA Comment Culture indicated Ur Microscopic Review Not Reportable Urine Culture Comments Culture indicated Urine Opiates Screen Ur Barbiturates Screen Ur Amphetamines Screen U Benzodiazepines Scrn Urine Cocaine Screen U Cannabinoids Screen Serum Alcohol Exam Vital signs: Vital Signs 02/27/18 18:03 02/27/18 18:38 02/27/18 19:11 Temperature 99.5 F 98.2 F 100.1 F H Pulse Rate 128 H 99 H 119 H Respiratory Rate 18 22 15 Blood Pressure 152/83 H 205/93 H 174/82 H Pulse Oximetry 100 99 100 02/27/18 22:49 02/27/18 23:44 02/28/18 01:51 Temperature 98.3 F 98.3 F Pulse Rate 77 77 Respiratory Rate 19 16 19 Blood Pressure 107/77 107/77 Pulse Oximetry 100 100 02/28/18 06:00 Temperature 98.0 F Pulse Rate 78 Respiratory Rate 17 Blood Pressure 109/68 Pulse Oximetry 98 Intake & Output 02/27/18 02/28/18 02/28/18 18:59 06:59 18:59 Weight 59.24 kg 59.24 kg Other: Weight On Admission 59.24 kg Narrative: At this time patient laying quietly on her bed on 2700. She is in no acute distress. Patient no respiratory distress. No complaints of chest pain no complaints of abdominal pain patient moving all 4 extremities without difficulty Mental Status Examination Appearance: Appropriate, Disheveled Consciousness: Alert Orientation: Person (Mildly), Place, Date/Time, Situation Motor Activity: Normal gait Speech: Pressured, Rapid Language: Adequate Fund of Knowledge: Inadequate Attention and Concentration: Easily distracted Mood: Angry, Irritable Affect: Other (Decreased range and intensity) Thought Process & Associations: Disorganized Thought Content: Bizarre thinking Hallucination Type: None Delusion Type: Bizarre, Paranoid Suicidal Ideation: No Suicidal Plan: No Suicidal Intention: No Homicidal Ideation: No Homicidal Plan: No Homicidal Intention: No Insight: Poor Judgment: Poor Assessment and Plan - Assessment (1) Brief psychotic disorder Code(s): F23 - Brief psychotic disorder Status: Acute (2) Marijuana abuse Code(s): F12.10 - Cannabis abuse, uncomplicated Status: Acute (3) Amphetamine abuse Code(s): F15.10 - Other stimulant abuse, uncomplicated Status: Acute - Plan Plan: Estimated LOS: [] day at this time patient remains quite psychotic and delusional I will do first opinion request second opinion. We will offer her Resporal 1 mg twice daily hopeless be fairly short stay and can return her to the community though she states she is homeless at the present time Justification for Continued Inpatient Stay: At this time patient would decompensate a place to a lower level of care Discharge Planning: To be determined Request Healthcare Surrogate/Guardian Advocate?: No
--- NOTE | 2018-03-01 14:44 | P.PNPSY ---
Subjective Remarks: Patient seen in day room with nurse Angela. Chart reviewed, patient compliant medications. Which shows no insight. We will order the Resporal 1 mg twice daily patient continues to feel there is a baby left inside her after the of her child 5 years ago. She is calm about this Review of Systems All other systems reviewed negative except as stated in HPI Mental Status Examination Appearance: Appropriate, Disheveled Consciousness: Alert Orientation: Person (Mildly), Place, Date/Time, Situation Motor Activity: Normal gait Speech: Pressured, Rapid Language: Adequate Fund of Knowledge: Inadequate Attention and Concentration: Easily distracted Mood: Angry, Irritable Affect: Other (Decreased range and intensity) Thought Process & Associations: Disorganized Thought Content: Bizarre thinking Hallucination Type: None Delusion Type: Bizarre, Paranoid Suicidal Ideation: No Suicidal Plan: No Suicidal Intention: No Homicidal Ideation: No Homicidal Plan: No Homicidal Intention: No Insight: Poor Judgment: Poor Assessment and Plan - Assessment (1) Brief psychotic disorder Code(s): F23 - Brief psychotic disorder Status: Acute (2) Marijuana abuse Code(s): F12.10 - Cannabis abuse, uncomplicated Status: Acute (3) Amphetamine abuse Code(s): F15.10 - Other stimulant abuse, uncomplicated Status: Acute - Plan Plan: Patient continues quite psychotic and delusional she medication adjustment above Justification for Continued Inpatient Stay: At this time patient would decompensate a place to a lower level of care Discharge Planning: To be determined Request Healthcare Surrogate/Guardian Advocate?: No
--- NOTE | 2018-03-02 09:58 | P.CONPSY ---
Provisional Diagnosis Admission Date: February 27, 2018 22:44 [place] I.: 1. Brief psychotic disorder 2. Polysubstance abuse, suspected [place] II.: Deferred History of Present Illness Service: Psychiatry Consult date: 03/02/18 Requesting Physician: Wilfred Owens Reason for Consult: Second opinion for involuntary psychiatric hospitalization Primary Care Provider: No Primary Care Physician History of Present Illness: Ms. Raphael is a 27-year-old female with no reported past psychiatric history who presented initially under a Stephens act by law enforcement alleging that the patient was responding to internal stimuli. Patient's urine toxicology on presentation here was positive for amphetamines and cannabinoids. Her ED point of care test was negative, although the patient continued to insist that she was . Reviewing the electronic medical record, I see no previous psychiatric contact within our system. Patient seen and examined with nurse. Chart reviewed. Case discussed with nursing staff. I have explained the purpose of my second opinion evaluation today to the patient. On my examination today, the patient says that she was brought into the hospital at the behest of family members. Her narrative of the events prior to admission is somewhat difficult to follow, although she does seem to minimize the extent of her presenting psychiatric symptomatology. She tells me that she believes that she is because "at first, it used to smell fishy. Now my water broke and it smells like blood" apparently referring to her perineal area. Affect is dysphoric and tearful at times. She denies SI/HI. Denies AVH. Remainder of the psychiatric ROS is negative. No acute physical complaints. Past psychiatric history: The patient denies a history of psychiatric diagnosis. She denies a history of inpatient or outpatient psychiatric treatment. She denies a history of suicide attempts. Family history: Patient denies any family history of mental illness or suicide. Chemical dependency history: The patient is evasive when asked about substance use. Urine toxicology is as noted above. Social history: The patient reports that she is presently homeless because everyone in her family is "scared" of her. When I ask what family members have to be scared of she replies cryptically "don't worry about it." Patient reports that she is but . She has 5 children who live with their fathers. She is high school educated. She does not work. She denies any history. She believes in God. Review of Systems All other systems reviewed negative except as stated [facility] - History History Provided By: Patient, Medical Record - Medical History Medical History: Medical History (Last Reviewed 02/27/18 @ 19:47 by LUMA Cadena) Medical history unknown Surgical history unknown - Tobacco History Second Hand Smoke Exposure: No Tobacco Use In Past 30 Days: Yes Smoking Status: Heavy tobacco smoker Tobacco Type: Cigarettes - Alcohol History How Often Do You Have a Drink Containing Alcohol: 4 or more times a week - Substance Use History Substance History: Unable to Obtain - Substance Use Type Methamphetamine Status: Active Route Used: Inhalation Reason for Use: Calm Down, Get High Comment: she is open stating I do Meli , and smoke [place], when I can and when I have it but denies Amphetamines - Travel History Recent Travel in the [place] Within the Last 8 Weeks: No Recent Travel Out of the Country Within the Last 8 Weeks: No - Immunization History Tetanus Immunization: Unable to Assess Hx Influenza Vaccine This Season: Unable to Assess Medications and Allergies Active Medications: Active Medications Acetaminophen (Tylenol) 650 mg PO Q4H PRN PRN Reason: Pain 1-5 or Temp >101F Al Hydrox/Mg Hydrox/Simethicone (Mag-Al Plus Susp Liq) 30 ml PO Q6H PRN PRN Reason: DYSPEPSIA Al Hydroxide/Mg Hydroxide (Milk Of Magnesia Liq) 30 ml PO Q12H PRN PRN Reason: Mild Constipation Diphenhydramine HCl (Benadryl) 50 mg PO HS PRN PRN Reason: INSOMNIA Hydroxyzine HCl (Atarax) 50 mg PO Q6H PRN PRN Reason: ANXIETY Ziprasidone (Geodon) 20 mg PO BID CONRADO Last Admin: 03/02/18 09:23 Dose: 20 mg Ziprasidone (Geodon Inj) 10 mg IM BID PRN PRN Reason: SEE LABEL COMMENTS Allergies Allergy/AdvReac Type Severity Reaction Status Date / Time No Known Allergies Allergy Unverified 02/27/18 18:02 Home Medications Medication Instructions Recorded Confirmed Type Unable to Obtain Home Meds 02/27/18 02/27/18 History Exam Vital signs: Vital Signs 03/01/18 17:25 03/02/18 05:37 Temperature 98.4 F 98.1 F Pulse Rate 79 60 Respiratory Rate 16 17 Blood Pressure 117/71 107/67 Pulse Oximetry 99 99 Narrative: Physical examination completed by ED provider. On my examination today, the patient appears to be in no acute physical distress. No motor abnormalities noted. Labs and vital signs reviewed: Laboratory Tests 02/27/18 02/27/18 02/27/18 18:19 18:19 19:05 WBC 12.1 H Hgb 13.8 Plt Count 195 Sodium 137 Potassium 3.6 Chloride 102 Carbon Dioxide 23.3 BUN 11 Creatinine 1.09 H Estimated GFR 72 L AST 24 ALT 23 Alkaline Phosphatase 68 TSH 1.030 Ur Amphetamines Screen Pos H U Cannabinoids Screen Pos H Serum Alcohol Less than 3 Mental Status Examination Appearance: Appropriate Consciousness: Alert Orientation: Person, Place (At least) Motor Activity: Other (No motor abnormalities noted) Speech: Unremarkable Language: Adequate Fund of Knowledge: Adequate Attention and Concentration: Adequate Memory: Unremarkable (Grossly intact on clinical exam) Mood: Other (Dysphoric) Affect: Other (Dysphoric, tearful at times) Thought Process & Associations: Circumstantial Thought Content: Delusional Hallucination Type: None Delusion Type: Somatic Suicidal Ideation: No Suicidal Plan: No Suicidal Intention: No Homicidal Ideation: No Homicidal Plan: No Homicidal Intention: No Insight: Poor Judgment: Poor Assessment and Plan - Assessment (1) Brief psychotic disorder Code(s): F23 - Brief psychotic disorder Status: Acute (2) Polysubstance abuse Code(s): F19.10 - Other psychoactive substance abuse, uncomplicated Status: Suspected - Plan Plan: Given the circumstances of the patient's presentation here and her presentation on my examination today, I concur with Dr. Owens that the patient meets criteria for involuntary psychiatric hospitalization under the Stephens act. Main concern here would be for self-care deficit as a consequence of possible psychotic process. I have completed second opinion paperwork. Further care as per Dr. Owens. Thank you very much for this consultation. Signing off. Justification for Continued Inpatient Stay: Per Dr. Owens
--- NOTE | 2018-03-02 12:57 | P.PNPSY ---
Subjective Remarks: Patient seen in her room with nurse Sherly, chart reviewed, patient compliant medication. Patient somewhat subdued today though she continues to feel that she has a 5 year old fetus inside her. She is vague about any abnormal auditory perceptions. She does deny suicidality. For now continue treatment we will increase Geodon to 40 mg twice daily Review of Systems All other systems reviewed negative except as stated in HPI Mental Status Examination Appearance: Appropriate, Disheveled Consciousness: Alert Orientation: Person (Mildly), Place, Date/Time, Situation Motor Activity: Normal gait Speech: Pressured, Rapid Language: Adequate Fund of Knowledge: Inadequate Attention and Concentration: Easily distracted Mood: Angry, Irritable Affect: Other (Decreased range and intensity) Thought Process & Associations: Disorganized Thought Content: Bizarre thinking Hallucination Type: Tactile (Vague feelings of 5-year-old fetus inside her) Delusion Type: Bizarre, Paranoid Suicidal Ideation: No Suicidal Plan: No Suicidal Intention: No Homicidal Ideation: No Homicidal Plan: No Homicidal Intention: No Insight: Poor Judgment: Poor Assessment and Plan - Assessment (1) Brief psychotic disorder Code(s): F23 - Brief psychotic disorder Status: Acute (2) Marijuana abuse Code(s): F12.10 - Cannabis abuse, uncomplicated Status: Acute (3) Amphetamine abuse Code(s): F15.10 - Other stimulant abuse, uncomplicated Status: Acute - Plan Plan: Patient continues psychotic and delusional Justification for Continued Inpatient Stay: At this time patient would decompensate a place to the lower level of care Discharge Planning: To be determined Request Healthcare Surrogate/Guardian Advocate?: No
--- NOTE | 2018-03-02 14:49 | P.TTN ---
- Patient Problems Problems: 1. Discharge planning 2. Medication compliance 3. Knowledge deficit 4. Lack of coping skills - Progress Toward Goals Provider Present: Dr. Tal Owens (Patient presents as delusional, abuses substance Meli, no and is consenting for medications at this time.) Psychiatric Counselors Present: Antonio Mo Jr., [facility] (Patient presents as childlike happy mood, reports she is homeless with no income and no insurance. Counselor will attempt to establish contact with her family today in an effort to secure stable housing.) Occupational Therapist Input: Attends select groups - Documentation Teaching Recipient: Patient
--- NOTE | 2018-03-03 10:30 | P.TTN ---
- Patient Problems Problems: 1. Discharge planning 2. Medication compliance 3. Knowledge deficit 4. Lack of coping skills - Progress Toward Goals Provider Present: Dr. Tal Owens (Patient presents as delusional, abuses substance Meli, no and is consenting for medications at this time. February patient delusional and needs to remain for further stabilization.) Psychiatric Counselors Present: Antonio Mo Jr., [facility] (Patient presents as childlike happy mood, reports she is homeless with no income and no insurance. Counselor will attempt to establish contact with her family today in an effort to secure stable housing. Counselor has been unsuccessful in attempts to contact family, patient is in need of stable housing but is without income or insurance. Patient does appear to be making progress toward her treatment goals at this time.) Group Spec/RT/OT/JACOBS Present: REYNALDO Gray (Patient attends select groups.) Occupational Therapist Input: Attends select groups - Documentation Teaching Recipient: Patient
--- NOTE | 2018-03-03 15:20 | P.PNPSY ---
Subjective Remarks: Patient seen in her room with nurse Sherly, chart reviewed, patient compliant medication patient is paranoia markedly diminishing her affect is improving she has better eye contact and somewhat more spontaneous smile. It appears she is just starting her menstrual cycle. It appears to be some mild reality testing related to her delusions also. Both this time feel patient no longer meets Stephens criteria. Patient willing to stay on a voluntary basis I will lift Stephens act allow patient to sign voluntary continue treatment Review of Systems All other systems reviewed negative except as stated in HPI Mental Status Examination Appearance: Appropriate Consciousness: Alert Orientation: Person, Place (At least) Motor Activity: Normal gait Speech: Unremarkable Language: Adequate Fund of Knowledge: Adequate Attention and Concentration: Adequate Memory: Unremarkable (Grossly intact on clinical exam) Mood: Other (Dysphoric) Affect: Other (Good range and intensity) Thought Process & Associations: Circumstantial (Improving) Thought Content: Delusional (Improving) Hallucination Type: None Delusion Type: Somatic (Decreasing) Suicidal Ideation: No Suicidal Plan: No Suicidal Intention: No Homicidal Ideation: No Homicidal Plan: No Homicidal Intention: No Insight: Poor Judgment: Poor Assessment and Plan - Assessment (1) Brief psychotic disorder Code(s): F23 - Brief psychotic disorder Status: Acute (2) Polysubstance abuse Code(s): F19.10 - Other psychoactive substance abuse, uncomplicated Status: Suspected - Plan Plan: Patient's psychosis started to resolve perhaps a combination effect of the medication and her detoxing off the amphetamines and marijuana at this time I feel patient has the capacity to sign voluntary will lift Stephens act Justification for Continued Inpatient Stay: At this time patient would decompensate a place to the lower level of care Discharge Planning: To be determined Request Healthcare Surrogate/Guardian Advocate?: No
[2018-03-04 05:55] VITALS: O2SAT 100
--- NOTE | 2018-03-04 13:47 | P.PNPSY ---
Subjective Remarks: Patient seen in her room with nurse Ayesha, patient calm pleasant with me. We did discuss her ROR. He also discussed the agreement we can to use the patient signed voluntary. Patient's delusions persist but are softening patient is willing to remain till tomorrow to continue with medication management. She is willing to rescind the ER OR with the possibility of discharge tomorrow. Patient compliant medication Review of Systems All other systems reviewed negative except as stated in HPI Mental Status Examination Appearance: Appropriate Consciousness: Alert Orientation: Person, Place (At least) Motor Activity: Normal gait Speech: Unremarkable Language: Adequate Fund of Knowledge: Adequate Attention and Concentration: Adequate Memory: Unremarkable (Grossly intact on clinical exam) Mood: Other (Dysphoric) Affect: Other (Good range and intensity) Thought Process & Associations: Circumstantial (Improving) Thought Content: Delusional (Improving) Hallucination Type: None Delusion Type: Somatic (Decreasing) Suicidal Ideation: No Suicidal Plan: No Suicidal Intention: No Homicidal Ideation: No Homicidal Plan: No Homicidal Intention: No Insight: Poor Judgment: Poor Assessment and Plan - Assessment (1) Brief psychotic disorder Code(s): F23 - Brief psychotic disorder Status: Acute (2) Polysubstance abuse Code(s): F19.10 - Other psychoactive substance abuse, uncomplicated Status: Suspected - Plan Plan: Patient's psychosis is decreasing Justification for Continued Inpatient Stay: At this time patient would decompensate if placed in a lower level of care Discharge Planning: To be determined possible discharge tomorrow Request Healthcare Surrogate/Guardian Advocate?: No
[2018-03-05 06:53] VITALS: BP 118/82; PULSE 79; RESP 16; TEMP 98
--- NOTE | 2018-03-05 12:57 | P.DSPSY ---
Psychiatry Discharge Summary Inpatient Psychiatric care?: Yes Advance Directives: No Mental Health Advance Directive: No Health Care Proxy: No - Admission Admission Date: February 27, 2018 22:44 - Admission Diagnosis (1) Brief psychotic disorder Code(s): F23 - Brief psychotic disorder (2) Marijuana abuse Code(s): F12.10 - Cannabis abuse, uncomplicated (3) Amphetamine abuse Code(s): F15.10 - Other stimulant abuse, uncomplicated Brief History: Patient is a 27-year-old Afro-Y[place]i female who comes here under Stephens act by the [place] dated 02/27/2018 oh 6:55 PM that document reviewed essentially stated John received a call from Donavon brother that he was worried about her well-being and wanted Donavon evaluated for Stephens act upon making contact with Donavon Lopez observed Donavon having a conversation with somebody who was not there Donavon was unable to tell us where exactly she was with the of the week it is what year it is over the current [place] President 's Donavon made statements about having just woken up from being put to sleep and somebody trying to have her tubes tied Nixon stated she was just going to stand up comedian place and way for a that the hospital supposedly called for. Patient seen screen in the ED urine toxicology positive for amphetamines and marijuana. At the present time patient laying quietly in her bed on 2700 nurse Jadyn and counselor Marisa present throughout session. Patient is alert fairly well oriented thin and slender somewhat disheveled -Yemeni female somewhat angry irritable labile. She tells us that she has a baby in her for the past 6 years along with a monitor was placed inside her she stated she broke her bag of sánchez a few weeks ago that is leaking and somewhat foul- smelling. Patient seen in the ED in October of this year with her one child. Though she complained of having a foreign body in the rectum. It appears the police were called and his same examination was done. The results are not known. In any event at the present time patient does meet criteria for further inpatient psychiatric hospitalization under the Stephens act patient gives no significant history of past psychiatric hospitalizations I feel this is a denial on her part. She is quite psychotic and delusional. She also minimizes her substance abuse history. She states she has 5 children all with the various fathers. She states she has a fairly good relationship with her mother. I will do first opinion request second opinion. We will offer her Resporal M tab 1 mg twice daily. Tobacco Use In Past 30 Days: Yes How Often Do You Have a Drink Containing Alcohol: 4 or more times a week Hospital Course: Patient's hospital course was uneventful her initial stay showed isolation with her the delusion related to long-term retention of some type of material slowly resolved. Her affect improved her eye contact improved her reality testing improved. Today patient denies suicidality homicidality voice or visions the delusion about the 5 year long retention of something in her abdomen is essentially gone. She can stay with a family member at the present time and help baby sit their children. Thus at this time feel patient is reached maximum benefit of this hospitalization thus she will be discharged today with Rx 1 month, follow-up [facility] act, absolute abstinence, referred to NA/AA, also refer to [facility] act outpatient involuntary substance abuse assessment - Discharge Discharge Date: 03/05/18 - Discharge Diagnosis (1) Brief psychotic disorder Diagnosis: Principal Code(s): F23 - Brief psychotic disorder Status: Acute (2) Marijuana abuse Diagnosis: Secondary Code(s): F12.10 - Cannabis abuse, uncomplicated Status: Acute (3) Amphetamine abuse Diagnosis: Secondary Code(s): F15.10 - Other stimulant abuse, uncomplicated Status: Acute Discharge Disposition: Home - Discharge Instructions Discharge Diet: Regular Diet Activities You Can Perform: Regular- No Restrictions - Discharge Time > 30 minutes Mental Status Examination Appearance: Appropriate Consciousness: Alert Orientation: Person, Place (At least) Motor Activity: Normal gait Speech: Unremarkable Language: Adequate Fund of Knowledge: Adequate Attention and Concentration: Adequate Memory: Unremarkable (Grossly intact on clinical exam) Mood: Other (Dysphoric) Affect: Other (Good range and intensity) Thought Process & Associations: Circumstantial (Improving) Thought Content: Delusional (Improving) Hallucination Type: None Delusion Type: Somatic (Decreasing) Suicidal Ideation: No Suicidal Plan: No Suicidal Intention: No Homicidal Ideation: No Homicidal Plan: No Homicidal Intention: No Insight: Poor Judgment: Poor Discharge/Advance Care Plan - Results Vital Signs: Last Vital Signs Temp 98 F 03/05/18 06:50 Pulse 79 03/05/18 06:50 Resp 16 03/05/18 06:50 BP 118/82 03/05/18 06:50 Pulse Ox 100 03/05/18 06:50 Lab Results: Laboratory Results TSH 1.030 uIU/mL (0.358-3.740) 02/27/18 18:19 Urine Culture Comments Culture indicated 02/27/18 19:05 Summary of Procedures: None done Pending Results: None - Medications Number of antipsychotic medications at discharge: 1 - Discharge Care Plan Goals to Promote Your Health: * To prevent worsening of your condition and complications * To maintain your health at the optimal level Directions to Meet Your Goals: Take your medications as prescribed Follow your dietary instruction Follow activity as directed Keep your appointments as scheduled Take your immunizations and boosters as scheduled If your symptoms worsen call your PCP, if no PCP go to Urgent Care Center or Emergency Room For 19/01 questions related to your inpatient stay or results of tests pending at discharge, please contact Dr. Wilfred Owens MD at Smoking is Dangerous to Your Health. Avoid second hand smoking
== END 2018-03-05 15:00 | disposition home or self-care (01) ==
LOC: NEPJ 17:47 → NEDA 22:44 → H270 23:40 → NEDA 23:47
PROVIDERS: ADMIT Psychiatry & Neurology Psychiatry; ATTEND Psychiatry & Neurology Psychiatry